=== PATIENT | female | born 1995 | race African-American/Black ===

== ENCOUNTER 2017-05-12 22:32 | Emergency (ER) | payer OTHER ==
[2017-05-12 23:31] VITALS: BP 136/94
[2017-05-12] MEDS ORDERED: Ketorolac 10 MG Tab PO ONE (23:56)
[2017-05-12] MEDS ORDERED: Ondansetron 4 MG Tab.DIS PO ONE (23:56)
--- NOTE | 2017-05-13 01:14 | ER ---
DATE SEEN: 05/12/2017 CHIEF COMPLAINT: Back pain. HISTORY OF PRESENT ILLNESS: A 22-year-old female complaining of right flank and back pain for 24 to 48 hours here with frequency of urination, spotting, and burning. Denies any fever but has had some chills. She denies . REVIEW OF SYSTEMS: No vaginal discharge. ALLERGIES: Omnicef and amoxicillin. SOCIAL HISTORY: Sexually active. PHYSICAL EXAMINATION: GENERAL: Nontoxic. VITAL SIGNS: Blood pressure is normal, pulse 71, and temperature 98.2. ABDOMEN: Soft. There is some tenderness to the right costovertebral angle area. No rebound or rigidity was noted. LABORATORY DATA: UA was negative. IMPRESSION: Back pain. PLAN: Ketorolac and Zofran were given orally. The patient advised to see her physician next week. Return to the ED with worsening symptoms. Time seen was 11:30 p.m. /[id number] HELLEN/KASSANDRA
== END 2017-05-12 23:58 | disposition home or self-care (01) ==
LOC: FB.ED 22:32
DX: M54.9 Dorsalgia, unspecified (principal); Z88.1 Allergy status to other antibiotic agents
CPT/HCPCS: 81001; 99283; A9270-GY